=== PATIENT | female | born 1950 | race Caucasian/White ===

== ENCOUNTER 2023-06-04 12:38 | Inpatient (IN) ==
--- NOTE | 2023-06-04 14:18 | Emergency Department Note ---
Impression & Plan Facial cellulitis, Cellulitis of ear, Sepsis, Leukocytosis, Elevated lactic acid level ED Provider Note HISTORY OF PRESENT ILLNESS: Patient is a 73-year-old female presenting with redness and swelling to the right ear and face. Patient was seen in convenient care earlier today and referred to the emergency department "for scans of my face because they think I have a sinus infection." Patient states that 3.5 days ago, she noticed swelling to her right ear that has since gradually progressed to her right face and right maxillary region. Her right ear has gotten significantly swollen in the last few days. She denies any trauma to the area. Denies any bites. Denies any trauma to the ear. Denies this area being itchy. She states that she does have significant pain to the ear and right side of her face. Denies any changes in vision. Reports fevers up to 101. Denies any vomiting but does report nausea. Denies any chest pain or shortness of breath. Denies any changes in hearing. Denies any pain with range of motion of the neck. Denies any gait instability. ROS: as above PHYSICAL EXAM: Constitutional: Patient appears in no acute distress. HENT: Head: Normocephalic and atraumatic. Eyes: EOMI, PERRL Ears: TM intact without erythema or bulging. External canals without erythema or discharge. Right external ear is diffusely swollen and erythematous. Area is tender to palpation. Mouth/Throat: Mucous membranes moist. Neck: Trachea midline. Neck supple. Cardiovascular: RRR, No murmurs, rubs or gallops. Intact distal pulses. Pulmonary/Chest: No respiratory distress. Breath sounds clear and equal bilaterally. No wheezes or rales. Abdominal: Abdomen soft, no tenderness, rebound or guarding. Musculoskeletal: No edema, tenderness or deformity noted. Skin: Warm and dry. No rash, erythema, pallor or cyanosis Psychiatric: Appropriate mood and affect for situation. Neurological: Alert and keenly responsive. CN II-XII grossly intact, moving all extremities equally and fully. MDM: - Vitals signs stable. - History obtained via patient. Patient presents with Swelling of her right ear and face. Patient was at convenient care earlier today and referred to the ER. She states that 3.5 days ago she noted swelling to her right ear that is gradually progressed to her right face and right maxillary region. Right ear has gotten more swollen and erythematous in the last few days. Denies any itchiness to the area. Denies any trauma to the area. Reports fevers in the last few days up to 101 denies any pain with range of motion of the neck or changes in vision - Chronic conditions affecting care: HTN; HLD; DM-2 - Differential diagnoses include, but are not limited to: cellulitis; sepsis; nasal infection; soft tissue infection; deep space neck infection - Order placed for continuous cardiac monitoring. At this time, monitor showed rate of 97 bpm with normal sinus rhythm, per my interpretation. - External medical records reviewed. - Laboratory workup interpreted by myself showed leukocytosis (WBC 13.00) with left shift; stable electrolytes; normal procalcitonin; elevated lactate (2.1) - Considered imaging of patient's face, but her physical examination is cellulitis and she has no symptoms of a "sinus infection." - Patient meets sepsis criteria. Given 2L NS fluids in ER and IV linezolid after blood cultures obtained. Patient's sepsis fluid resuscitation volume per ideal body weight is 1704 mL. - Given patient's extensive ear and facial cellulitis, in setting of sepsis and history of DM-2, will admit to hospitalist service. - Discussion was had with health care attorney about patient's case and need for admission - Hospitalist consulted for admission - Patient admitted to [facility] hospitalist service for further evaluation and management. ASSESSMENT AND PLAN: Diagnosis: facial cellulitis; cellulitis of right ear; sepsis; elevated lactic acid; leukocytosis Plan: admit Past Med/Surg History Medical History Obesity Osteoarthritis Hyperlipidemia Hypertension Diabetes mellitus NIDDM Surgical History History of colonoscopy History of bilateral tubal ligation History of section x1 History of tonsillectomy Family History Other Family history non-contributory No family history of adverse response to anesthesia Social History Smoking Status: Never smoker Second Hand Exposure: No; Do You Dip or Chew Tobacco: No; Hx Alcohol Use: Yes Hx Substance Use: No Preferred Language: Khmer Communication Ability: Effective Food Service Associate Required: No Beliefs That Will Affect Care: None Current Living Situation: Spouse Feels Safe at Home: Yes Assistive Devices: Glasses Allergies Allergies Allergy/AdvReac Type Severity Reaction Status Date / Time No Known Allergies Allergy Verified 05/26/21 07:49 Home Meds Home Medications Medication Instructions Recorded Confirmed rxbckew-mcceyursfjitw-omlvimdk 250 2 tab PO Q6H PRN Headache 11/15/18 05/26/21 mg-250 mg-65 mg tablet (Excedrin Migraine) empagliflozin 25 mg tablet 25 mg PO QAM 11/15/18 05/26/21 (Jardiance) glipizide 5 mg tablet, extended 10 mg PO QAM 11/15/18 05/26/21 release 24 hr (Glucotrol XL) glucosamine sulfate 500 mg tablet 500 mg PO QAM 11/15/18 05/26/21 (Glucosamine) lisinopril 40 mg tablet 40 mg PO PM 11/15/18 05/26/21 metformin 1,000 mg tablet 1,000 mg PO BIDM 11/15/18 05/26/21 multivitamin 1 tab PO QAM 11/15/18 05/26/21 multivitamin,Ca,mineral-folic 400 mcg PO PM 11/15/18 05/26/21 acid-herbal no.157 400 mcg tablet (Estroven Maximum Strength) simvastatin 40 mg tablet 40 mg PO PM 11/15/18 05/26/21 semaglutide 7 mg tablet 7 mg PO QAM 05/16/21 05/26/21 Previous Rx's Medication Instructions Recorded acetaminophen 500 mg tablet 1,000 mg (2 x 500 mg) PO Q8 #60 05/26/21 (Tylenol Extra Strength) tabs aspirin 81 mg tablet,delayed 81 mg PO BID #60 tabs 05/26/21 release cefadroxil 500 mg capsule 500 mg PO BID #28 caps 05/26/21 celecoxib 200 mg capsule (Celebrex) 200 mg PO BID #60 caps 05/26/21 ondansetron HCl 4 mg tablet 4 mg PO Q8H PRN nausea and 05/26/21 vomiting #20 tabs oxycodone 5 mg tablet 5 - 10 mg (1 - 2 x 5 mg) PO 05/26/21 .Q4h-6h PRN pain #30 tabs Results & Data (ED) Vital Signs Vital Signs - 24 hr 06/04/23 13:11 06/04/23 14:45 06/04/23 14:49 Temperature 36.8 C 37.3 C Temperature Source Oral Oral Pulse Rate 90 97 H Pulse Rate [Right Finger] 93 H Respiratory Rate 16 26 H Respiratory Effort / Characteristics Non-Labored Spontaneous Respiratory Depth Normal Normal Blood Pressure 121/90 Blood Pressure [Right Arm] 119/66 Blood Pressure Mean 100 Blood Pressure Mean [Right Arm] 83 Pulse Oximetry 95 93 Oxygen Delivery Method Room Air Room Air Sepsis Recent Fever Within 48 Hours No Sepsis New/Unexplained Change in Mental Status No Sepsis Action Taken by Nursing No Action Required Laboratory Data 06/04/23 14:11 06/04/23 14:11 Lab Results 06/04/23 Range/Units 14:11 WBC 13.00 H (4.8-10.8) K/ul RBC 5.04 (4.20-5.40) M/uL Hgb 13.9 (12.0-16.0) g/dl Hct 42.0 (37.0-47.0) % MCV 83.3 (80.0-100.0) fL MCH 27.6 (25.0-34.0) pg MCHC 33.1 (32.0-36.0) g/dL RDW Std Deviation 45.8 (36.4-46.3) fL RDW Coeff of Farhad 15.0 H (11.5-14.5) % Plt Count 220 (130-400) K/uL MPV 9.6 (9.4-12.4) fL Immature Gran % (Auto) 0.4 % Neut % (Auto) 81.0 % Lymph % (Auto) 10.8 % [place] % (Auto) 7.2 % Eos % (Auto) 0.2 % Baso % (Auto) 0.4 % Neut # (Auto) 10.53 H (1.40-6.50) K/uL Lymph # (Auto) 1.41 (1.20-3.40) K/uL [place] # (Auto) 0.93 H (0.11-0.59) K/uL Eos # (Auto) 0.03 (0.00-0.50) K/uL Baso # (Auto) 0.05 (0.00-0.20) K/uL Immature Gran # (Auto) 0.05 (0.01-0.20) K/uL Sodium 133 L (136-145) mmol/L Potassium 4.4 (3.5-5.1) mmol/L Chloride 98 (98-107) mmol/L Carbon Dioxide 24 (21-32) mmol/L Anion Gap 11 (3-11) BUN 15 (6-23) mg/dl Creatinine 1.00 (0.6-1.2) mg/dl Est Cr Clr Drug Dosing 56.8 ml/min Est GFR ( Amer) 65.2 ml/min Est GFR (Non-Af Amer) 56.2 ml/min BUN/Creatinine Ratio 15.0 (10-20) Glucose 169 H (70-99(Fasting)) mg/dl Lactate 2.1 H* (0.4-2.0) mmol/L Calcium 9.0 (8.6-10.3) mg/dl Total Bilirubin 0.9 (0.2-1.0) mg/dl AST 14 (13-39) U/L ALT 13 (7-52) U/L Alkaline Phosphatase 57 (34-104) U/L Total Protein 7.3 (6.0-8.3) gm/dl Albumin 4.2 (3.4-5.0) gm/dl Globulin 3.1 (2.5-4.0) gm/dl Albumin/Globulin Ratio 1.4 (0.9-2) Procalcitonin 0.13 (0-0.5) ng/ml Administered Medications Linezolid (Zyvox) 600 mg in 300 mls @ 300 mls/hr IV Q12H SHEKHAR Stop: 06/11/23 14:14 Last Admin: 06/04/23 14:41 Dose: 300 mls/hr Documented By: MICHAEL Imaging Data Radiologist's Impression: Chest X-Ray 06/04/23 15:16 XR chest 1V portable CLINICAL HISTORY: sepsis TECHNIQUE: Single frontal radiograph of the chest was obtained. Comparison: Comparison is made to chest radiograph 02/24/2021 FINDINGS: No lines and tubes are seen. The cardiomediastinal silhouette is normal. The lungs are clear. No evidence of pleural effusion or pneumothorax. IMPRESSION: No acute abnormalities and in particular no radiographic evidence of pneumonia. ACT 112: Negative or not required by law. Electronically signed by: Kraig Carlisle M.D. 06/04/2023 3:38 PM Discharge Plan Visit Data Chief Complaint: Referred by Doctor Stated Complaint: REF BY DOC ED Provider: Rukhsana Shafer Discharge Problem: Facial cellulitis, Cellulitis of ear, Sepsis, Leukocytosis, Elevated lactic acid level Forms Stand Alone Forms: My [facility] [employer] Prescriptions Prescriptions: No Action multivitamin Tablet 1 tab PO QAM glipizide [Glucotrol XL] 5 mg tablet extended release 24hr 10 mg PO QAM glucosamine sulfate [Glucosamine] 500 mg Tablet 500 mg PO QAM simvastatin 40 mg tablet 40 mg PO PM metformin 1,000 mg tablet 1,000 mg PO BIDM lisinopril 40 mg tablet 40 mg PO PM Excedrin Migraine 250-250-65 mg Tablet 2 tab PO Q6H PRN (Reason: Headache) Estroven Maximum Strength 400 mcg Tablet 400 mcg PO PM Jardiance 25 mg tablet 25 mg PO QAM semaglutide 7 mg Tablet 7 mg PO QAM celecoxib [Celebrex] 200 mg Capsule 200 mg PO BID Qty: 60 0RF aspirin 81 mg Tablet,Delayed Release (Dr/Ec) 81 mg PO BID Qty: 60 0RF oxycodone 5 mg Tablet 5 - 10 mg PO .Q4h-6h MDD 6 PRN (Reason: pain) Qty: 30 0RF Rx Instructions: Ongoing therapy, Dr. Rivas supervising acetaminophen [Tylenol Extra Strength] 500 mg Tablet 1,000 mg PO Q8 Qty: 60 0RF cefadroxil 500 mg capsule 500 mg PO BID Qty: 28 0RF ondansetron HCl 4 mg tablet 4 mg PO Q8H PRN (Reason: nausea and vomiting) Qty: 20 0RF Referrals Referrals: Clarita Tirado PA-C [Primary Care Provider] -
[2023-06-04 14:31] LABS: Basophils # (auto) 0.05 K/uL (0.00-0.20); Basophils % (auto) 0.4 %; Eosinophils # (auto) 0.03 K/uL (0.00-0.50); Eosinophils % (auto) 0.2 %; Hemoglobin 13.9 g/dl (12.0-16.0); Immature Granulocytes # (auto) 0.05 K/uL (0.01-0.20); Immature Granulocytes % (auto) 0.4 %; Lymphocytes # (auto) 1.41 K/uL (1.20-3.40); Lymphocytes % (auto) 10.8 %; Mean Corpuscular Hemoglobin 27.6 pg (25.0-34.0); Mean Corpuscular Hgb Conc 33.1 g/dL (32.0-36.0); Mean Corpuscular Volume 83.3 fL (80.0-100.0); Mean Platelet Volume 9.6 fL (9.4-12.4); Monocytes # (auto) 0.93 K/uL (0.11-0.59); Monocytes % (auto) 7.2 %; Neutrophils # (auto) 10.53 K/uL (1.40-6.50); Platelet Count 220 K/uL (130-400); RDW Standard Deviation 45.8 fL (36.4-46.3); Red Blood Count 5.04 M/uL (4.20-5.40)
[2023-06-04] MEDS: LINEZOLID 600 MG/300 ML BAG IV SCH (14:41)
[2023-06-04 14:52] LABS: Albumin Globulin Ratio 1.4 (0.9-2); Albumin Level 4.2 gm/dl (3.4-5.0); Bilirubin,Total 0.9 mg/dl (0.2-1.0); Creatinine Clr Calc Pharmacy 56.8 ml/min; Est GFR (African American) 65.2 ml/min; Est GFR (Non-African American) 56.2 ml/min; Globulin 3.1 gm/dl (2.5-4.0); Potassium 4.4 mmol/L (3.5-5.1); Total Protein 7.3 gm/dl (6.0-8.3)
--- NOTE | 2023-06-04 15:39 | XRay Report ---
XR chest 1V portable CLINICAL HISTORY: sepsis TECHNIQUE: Single frontal radiograph of the chest was obtained. Comparison: Comparison is made to chest radiograph 02/24/2021 FINDINGS: No lines and tubes are seen. The cardiomediastinal silhouette is normal. The lungs are clear. No evid ence of pleural effusion or pneumothorax. IMPRESSION: No acute abnormalities and in particular no radiographic evidence of pneumonia. ACT 112: Negative or not required by law. Electronically signed by: Kraig Carlisle M.D. 06/04/2023 3:38 PM
[2023-06-04] MEDS ORDERED: ALUMINUM/MAGNESIUM SUSP 30 ML UDC PO PRN (15:59)
[2023-06-04] MEDS ORDERED: MAGNESIUM HYDROXIDE SUSP 30 ML UDC PO PRN (15:59)
[2023-06-04] MEDS ORDERED: POLYETHYLENE (MIRALAX) 17 GM PACK PO PRN (15:59)
[2023-06-04] MEDS ORDERED: ONDANSETRON INJ 2 MG/ML 2 ML VIAL IV PRN (15:59)
[2023-06-04] MEDS ORDERED: ACETAMINOPHEN 325 MG TAB PO PRN (15:59)
--- NOTE | 2023-06-04 16:09 | History & Physical Report ---
Date of Service June 04, 2023 Assessment & Plan (1) Sepsis: (2) Facial cellulitis: (3) Elevated lactic acid level: (4) Hyperlipidemia: (5) Hypertension: (6) Diabetes mellitus: Plan Ms. Salazar is a 73 y/o F that presented to the ED today after being recommended to come to the ED from [facility]. On Sunday she noticed she had a fever (101) and a headache with swelling that started at her right ear extending downward on her face. She received IM Rocephin at [facility] today and was advised to proceed to the ER. In the ED, was noted to have leukocytosis WBC 13.00, elevated lactate 2.1, procalcitonin negative, and otherwise electrolytes unremarkable. Additional PMH includes HTN, NIDDM2, and HLD. Upon arrival to the ED, pt meets sepsis criteria with leukocytosis (13.00), elevate lactate (2.1), and fevers (101). Denies tobacco, alcohol, or recreational drug use. Reports that she has been doing a lot of cleaning in the kitchen on her hands and knees. They do report having a cat and mice in their house. Exposed mold noted upon removing wallpaper earlier this week. Maxillary facial CT negative for abscess or fracture. Lyme's screening negative. On examination, (+) erythema and swelling of entire R ear extending downward toward mandible. No oral lesions. No lymphadenopathy. Suspect possible spider bite. Will admit for sepsis secondary to facial cellulitis. Continue IV abx and adjust based on culture results, trend lactate, maxillary and facial CT obtained, continue broad spectrum abx, obtain MRSA screen, provide pain control, check CRP and place on SSI. #Sepsis secondary to facial cellulitis: Leukocytosis 13.00, tachypnea, fevers 101, elevated lactate 2.1 meeting sepsis criteria Received IM Rocephin as outpatient Lactate 2.1--> 1.8 IV Linezolid in ED; will continue with Unasyn and adjust based on culture/MRSA results Blood cultures pending Received 2LNSB in ED; lactate has trended downward. gentle fluids added x2 bags Maxillary/facial CT negative for abscess and fracture Lyme's serology negative Check MRSA swab If no improvement, consider IV steroid #HTN: Chronic Takes Lisinopril; continue HLD: Chronic Takes Simvastatin;continue NIDDM2: Chronic Takes Metformin and semalutide; hold for now and place on SSI ACHS Disposition: PCP: Clarita Tirado PA-C Code Status: Full Code VTE Prophylaxis: Lovenox SQ I spent a total of 87 minutes coordinating, documenting, and providing care for this patient excluding time spent in the performance of separately billed services. All of the aforementioned completed while collaborating with the assigned attending physician for a full treatment plan. Please see their addendum for further details. History of Present Illness Chief Complaint: facial cellulitus Primary Care Provider: Clarita Tirado PA-C Ms. Salazar is a 73 year old female that presented to the ED today after being recommended to come to the ED from [facility]. On Sunday she noticed she had a fever (101) and a headache with swelling that started at her right ear extending downward on her face. She received IM Rocephin at [facility] and was advised to proceed to the ER. In the ED, was noted to have leukocytosis WBC 13.00, elevated lactate 2.1, procalcitonin negative, and otherwise electrolytes unremarkable. Additional PMH includes HTN, NIDDM2, and HLD. Upon arrival to the ED, pt meets sepsis criteria with leukocytosis (13.00), elevate lactate (2.1), and fevers (101). Denies tobacco, alcohol, or recreational drug use. Reports that she has been doing a lot of cleaning in the kitchen on her hands and knees. They do report having a cat and mice in their house. Exposed mold noted upon removing wallpaper earlier this week. Maxillary facial CT negative for abscess or fracture. Lyme's screening negative. On examination, (+) erythema and swelling of entire R ear extending downward toward mandible. No oral lesions. No lymphadenopathy. Suspect possible spider bite. Will admit for sepsis secondary to facial cellulitis. Continue IV abx and adjust based on culture results, trend lactate, maxillary and facial CT obtained, continue broad spectrum abx, obtain MRSA screen, provide pain control, check CRP and place on SSI. Please see A/P for further details. Allergies Allergy/AdvReac Type Severity Reaction Status Date / Time No Known Allergies Allergy Verified 05/26/21 07:49 Home Medications Medication Instructions Recorded Confirmed Type tuoenmi-gxopzoauqaibl-wsinbhac 250 2 tab PO Q6H PRN Headache 11/15/18 06/04/23 History mg-250 mg-65 mg tablet (Excedrin Migraine) empagliflozin 25 mg tablet 25 mg PO QAM 11/15/18 06/04/23 History (Jardiance) glucosamine sulfate 500 mg tablet 500 mg PO QAM 11/15/18 06/04/23 History (Glucosamine) lisinopril 40 mg tablet 40 mg PO PM 11/15/18 06/04/23 History metformin 1,000 mg tablet 1,000 mg PO BIDM 11/15/18 06/04/23 History multivitamin 1 tab PO QAM 11/15/18 06/04/23 History multivitamin,Ca,mineral-folic 400 mcg PO PM 11/15/18 06/04/23 History acid-herbal no.157 400 mcg tablet (Estroven Maximum Strength) simvastatin 40 mg tablet 40 mg PO PM 11/15/18 06/04/23 History semaglutide 7 mg tablet 7 mg PO QAM 05/16/21 06/04/23 History acetaminophen 500 mg tablet 1,000 mg (2 x 500 mg) PO Q8 #60 05/26/21 06/04/23 Rx (Tylenol Extra Strength) tabs aspirin 81 mg tablet,delayed 81 mg PO BID #60 tabs 05/26/21 06/04/23 Rx release celecoxib 200 mg capsule (Celebrex) 200 mg PO BID #60 caps 05/26/21 06/04/23 Rx ondansetron HCl 4 mg tablet 4 mg PO Q8H PRN nausea and 05/26/21 06/04/23 Rx vomiting #20 tabs oxycodone 5 mg tablet 5 - 10 mg (1 - 2 x 5 mg) PO 05/26/21 06/04/23 Rx .Q4h-6h PRN pain #30 tabs Past Med/Surg History Medical History Obesity Osteoarthritis Hyperlipidemia Hypertension Diabetes mellitus NIDDM Surgical History History of colonoscopy History of bilateral tubal ligation History of section x1 History of tonsillectomy Family History Other Family history non-contributory No family history of adverse response to anesthesia Social History Smoking Status: Never smoker Second Hand Exposure: No; Do You Dip or Chew Tobacco: No; Hx Alcohol Use: No Hx Substance Use: No Preferred Language: Botswanan Communication Ability: Effective Branch Coordinator Required: No Beliefs That Will Affect Care: None Current Living Situation: Spouse Feels Safe at Home: Yes Assistive Devices: Glasses Review of Systems Review of Systems: Neuro: (-) Falls, trauma, slurred speech (+) fevers HEENT: (-) VAZ, dizziness, dysphagia, visual or auditory changes CV: (-) CP, palpitations, swelling Resp: (-) SOB GI: (-) appetite changes, N/V/D, bowel changes : (-) urinary changes Skin: (+) rashes Psych: (-) anxiety, depression Physical Exam Physical Exam: Neuro: AAOx4, PERRLA, no aphagia, memory changes, CNII-XII grossly intact (+) fever HEENT: head normocephalic, moist mucus membranes CV: S1/S2, (-) M/G/R, (-) edema, cap refill < 3 seconds Resp: Lungs CTA in all velázquez. On RA GI: Abdomen S/NT/ND, Ax4 bowel sounds, (-) CVA tenderness Musculoskeletal: 5/5 B/L UE strength, 5/5 B/L LE strength. No gait disturbance Skin: (-) rashes , (-) erythema. (+) erythema and swelling of entire R ear extending downward toward mandible. No oral lesions. No lymphadenopathy. Psych: euthymic mood Results & Data Results & Data Vital Signs (Past 12 Hours) Vital Signs Temp Pulse Pulse Resp BP BP Pulse Ox 06/04/23 14:49 97 H 06/04/23 14:45 37.3 C 93 H 26 H 119/66 93 06/04/23 13:11 36.8 C 90 16 121/90 95 O2 Del Method 06/04/23 14:49 06/04/23 14:45 Room Air 06/04/23 13:11 Room Air Laboratory Results Short CBC 06/04/23 Range/Units 14:11 WBC 13.00 H (4.8-10.8) K/ul Hgb 13.9 (12.0-16.0) g/dl Hct 42.0 (37.0-47.0) % Plt Count 220 (130-400) K/uL BMP 06/04/23 14:11 Sodium 133 L Potassium 4.4 Chloride 98 Carbon Dioxide 24 BUN 15 Creatinine 1.00 Glucose 169 H Calcium 9.0 Liver Function 06/04/23 Range/Units 14:11 Total Bilirubin 0.9 (0.2-1.0) mg/dl AST 14 (13-39) U/L ALT 13 (7-52) U/L Alkaline Phosphatase 57 (34-104) U/L Albumin 4.2 (3.4-5.0) gm/dl Diagnostic Findings Chest X-Ray 06/04/23 15:16 XR chest 1V portable CLINICAL HISTORY: sepsis TECHNIQUE: Single frontal radiograph of the chest was obtained. Comparison: Comparison is made to chest radiograph 02/24/2021 FINDINGS: No lines and tubes are seen. The cardiomediastinal silhouette is normal. The lungs are clear. No evidence of pleural effusion or pneumothorax. IMPRESSION: No acute abnormalities and in particular no radiographic evidence of pneumonia. ACT 112: Negative or not required by law. Electronically signed by: Kraig Carlisle M.D. 06/04/2023 3:38 PM Code Status & VTE Plan Code Status Full Code in the event of cardiac or respiratory arrest VTE Prophylaxis Plan VTE Prophylaxis will be ordered: Yes Supervising Physician Co-Signing Physician Notes Attending addendum: The patient was seen and examined in the emergency room She has been complaining of right facial swelling with pain for the last 2 to 3 days Thinks that she has had a spider bite Has had fever no nausea no vomiting No problem with hearing no ringing in the ears did have headache but no blurred vision no other neurological symptoms No skin break noted no drainage On examination Lying in bed with some anxiety Hemodynamically stable and afebrile Swelling of the right face earlobes and adjoining area of the scalp with tenderness and warmth Right cervical gland cellulitis to-oral cavity remained unremarkable Chest-clear to auscultate bilateral Heart S1-S2 regular- Abdomen-benign Extremities-negative for any edema Her admission labs. And imaging studies reviewed CT of the face did not show any fluid collection//acute fracture or other abnormality Started on Unasyn and also received a dose of steroid Agree with assessment plan as outlined above by Ilsa Mccord
[2023-06-04] MEDS: SODIUM CHLORIDE 0.9% 1,000 ML IV ONE ×2 (16:14)
[2023-06-04] MEDS ORDERED: CARBOHYDRATES FOR HYPOGLYCEMIA PO PRN (16:34)
[2023-06-04] MEDS ORDERED: DEXTROSE 50% 50 ML SYRINGE IV PRN (16:34)
[2023-06-04] MEDS ORDERED: GLUCOSE 10 TAB/TUBE PO PRN (16:34)
[2023-06-04] MEDS ORDERED: GLUCAGON FOR INJ 1 MG VIAL SQ PRN (16:34)
[2023-06-04] MEDS ORDERED: GLUCOSE 40% GEL 15 GM TUBE PO PRN (16:34)
[2023-06-04] MEDS ORDERED: PHARMACY GLYCEMIC MGMT CONSULT PRN (16:34)
[2023-06-04] MEDS: OPTIRAY 320 500ml IV ONE (16:41)
--- NOTE | 2023-06-04 16:57 | CT Scan Report ---
CT facial bones w con CLINICAL HISTORY: facial cellulitis TECHNIQUE: Multidetector row helical CT of the maxillofacial bones was performed with administration of intravenous contrast, and processed with bone and soft tissue algorithms. Coronal and sagittal ref ormations were obtained. Automated dose lowering techniques and/or adjustment according to patient si ze were utilized for this exam. Comparison: None available at the time of this dictation. FINDINGS: Nasal bones are normal. The mandible is intact. The temporomandibular joints are anatomically aligned . Pterygoid plates are intact. Zygomatic arches are intact. The globes are normal and symmetric, without proptosis, obvious disruption or lens dislocation. Ther e is no orbital radiopaque foreign body. The orbital hearn are intact. The retrobulbar fat is without evidence of disruption. Extraocular muscles are normal and symmetric. Optic nerve sheath complexes are normal in course and caliber. Imaged portions of the paranasal sinuses and mastoid air cells are clear. IMPRESSION: No drainable fluid collection, acute fracture, or other acute abnormality. ACT 112: Negative or not required by law. Electronically signed by: Kraig Carlisle M.D. 06/04/2023 4:56 PM
[2023-06-04 18:15] LABS: Appearance Urine Clear (Clear); Bilirubin Urine Negative (Negative); Blood Urine Negative (Negative); Color Urine Yellow; Glucose Urine UA 3+ (Negative); Ketones Urine 1+ (Negative); Leukocyte Esterase Urine Negative (Negative); Nitrite Urine Negative (Negative); Protein Urine Negative (Negative); Specific Gravity Urine 1.041 (1.000-1.030); Urobilinogen Urine Negative (Negative)
[2023-06-04] MEDS: ENOXAPARIN INJ 40 MG/0.4 ML SYR SQ SCH (20:11)
[2023-06-04] MEDS: SODIUM CHLORIDE 0.9% 1,000 ML IV SCH (20:50)
[2023-06-04] MEDS ORDERED: LANTUS PER UNIT CHARGE SQ SCH (21:00)
[2023-06-04] MEDS ORDERED: AMPICILLIN/SULBACTAM SOD 3,000 MG in SODIUM CHLOR 0.9% MINI-B 100 ML IV SCH (21:00)
[2023-06-04] MEDS: ASPIRIN 81 MG ECTAB PO SCH (21:03)
[2023-06-04] MEDS: lisinopril 40 MG TAB PO SCH (21:03)
[2023-06-04] MEDS: SIMVASTATIN 40 MG TAB PO SCH (21:03)
[2023-06-04] MEDS: LANTUS PER UNIT CHARGE SQ SCH (21:04)
[2023-06-04] MEDS: UNASYN 3000MG / NS q6h IV SCH (21:04)
[2023-06-04] MEDS: INSULIN ASPART PER UNIT CHARGE SC SCH (21:04)
--- OUTSIDE RECORDS SUMMARY | 2023-06-05 07:50 | External Medical Summary | Summary of Care ---
Author Name Unknown Organization [facility] Address [address] [place] [address] Phone [phone] Care Team Providers Care Marketing Planning Manager Name Role Phone Bruno VASQUEZ MD, Roberto Carlos Stokes Primary Care Provider [phone] Reason for Referral * Precert (Within 24 hrs (call dept; emergent)) - Pending Review Specialty Diagnoses / Procedures Referred By Contac t Referred To Contact Radiology Diagnoses Acute diffuse otitis externa of right ear Acute sinusitis, recurrence not specified, unspecified location Facial pain Facial swelling Procedures CT SINUSES W WO CONTRAST Rasheed Hampton PA-C [address] [place] [address] Referral ID Status Reason Start Date Expiration Date V isits Requested Visits Authorized [id number] Pending Review 06/04/2023 999 999 * Precert (Within 24 hrs (call dept; emergent)) - Pending Review Specialty Diagnoses / Procedures Referred By Contac t Referred To Contact Radiology Diagnoses Acute diffuse otitis externa of right ear Acute sinusitis, recurrence not specified, unspecified location Facial pain Facial swelling Procedures CT NECK W CONTRAST Rasheed Hampton PA-C [address] [place] [address] Referral ID Status Reason Start Date Expiration Date V isits Requested Visits Authorized [id number] Pending Review 06/04/2023 999 999 * Evaluate & Treat - Unlimited Visits (Within 24 hrs (call dept; emergent)) - Pending Review Specialty Diagnoses / Procedures Referred By Juliocesar fischer Referred To Contact Otolaryngology Diagnoses Acute diffuse otitis externa of right ear Acute sinusitis, recurrence not specified, unspecified location Facial pain Facial swelling Rasheed Hampton PA-C [address] [address] Referral ID Status Reason Start Date Expiration Date Visits Requested Visits Authorized [id number] Pending Review Specialty Services Required 06/04/2023 999 999 Question Answer Referral Priority Within 24 hrs (call dept; emergent) Where should this appointment be scheduled? [facility] Reason for Referral Sinus/Nasal/Allergy Conditions Specific Condition: Acute Sinusitis Reason for Visit * Reason Comments Other Right sided facial p ain and swelling with noted redness x 3 days increasing worsening noted Nausea Encounter Details Date Type Department Care Team (Latest Contact Info) Description 06/04/2023 10:50 AM EST Convenient Care Visit [facility] [address] [place] [address] Rasheed Hampton PA-C [address] [place] [address] Acute diffuse otitis externa of right ear*; Acute sinusitis, recurrence not specified, unspecified location; Facial pain; Facial swelling Allergies No known active allergiesdocumented as of this encounter (statuses as of 06/04/2023) Medications Medication Sig Dispensed Refills Start Date End Date Status Multiple Vitamins-Minerals (ONE-A-DAY MENOPAUSE FORMULA) TABS Take 1 Tab by mouth daily. 0 Active Misc Natural Products (GLUCOSAMINE CHONDROITIN TRIPLE) TABS Take 1 Tab by mouth daily. 0 Active Specialty Vitamins Products (RA EAR CARE) TABS Take 1 Tab by mouth 2 times a day. 0 Active Aspirin 81 MG TabletIndications: Type 2 diabetes mellitus with hemoglobin A1c goal of less than 8.0% (HCC) Take 1 Tab by mouth daily. 30 Tab 0 11/06/2017 Active TRUEplus Lancets 30G USE UP TO 4 TIMES A DAY 400 Each 3 01/17/2022 Active Ikro 2 w/Device KitIndications:Typ e 2 diabetes mellitus with hemoglobin A1c goal of less than 8.0% (HCC) Use to test blood glucose. DX: E11.9 1 Each 0 03/06/2022 Active Ibuprofen 600 MG Oral Tablet (Motrin) take 1 tablet by mouth three times a day if needed WITH FOOD 0 03/01/2022 Active [employer] Delica Plus [id number] ns:Type 2 diabetes mellitus with hemoglobin A1c goal of less than 8.0% (HCC) Use as directed. Test blood glucose 4 times daily. 400 Each 3 05/15/2022 Active [employer] Ultra In Vitro Strip (Glucose Blood)Indications: Type 2 diabetes mellitus with hemoglobin A1c goal of less than 8.0% (HCC) TEST 4 TIMES DAILY 400 Strip 1 02/26/2023 Active Atorvastatin Calcium 20 MG Oral Tablet (Lipitor) Take 1 Tablet by mouth in the morning. In the morning.. 90 Tablet 1 04/02/2023 Active amLODIPine Besylate 5 MG Oral Tablet (Norvasc) Take 1 Tablet by mouth in the morning. In the morning.. 90 Tablet 1 04/02/2023 Active Semaglutide 14 MG Oral Tablet (Rybelsus)Indicati ons:Type 2 diabetes mellitus with hemoglobin A1c goal of less than 8.0% (HCC) Take 14 mg by mouth daily first thing in the morning. 90 Tablet 3 04/02/2023 Active Lisinopril 40 MG Oral Tablet Take 1 Tablet by mouth in the morning. 90 Tablet 1 04/02/2023 Active Empagliflozin 25 MG Oral Tablet (Jardiance)Indicat ions:Type 2 diabetes mellitus with hemoglobin A1c goal of less than 8.0% (HCC) Take 1 Tablet by mouth in the morning. In the morning.. 90 Tablet 3 04/24/2023 Active metFORMIN HCl 1000 MG Oral Tablet (Glucophage)Indica tions:Type 2 diabetes mellitus with hemoglobin A1c goal of less than 7.0% (HCC) Take 1 Tablet by mouth in the morning and 1 Tablet before bedtime. With food.. 180 Tablet 1 04/24/2023 Active Metoprolol Succinate ER 25 MG Oral Tablet Extended Release 24 Hour (toPROL XL)Indications:Ess ential hypertension with goal blood pressure less than 140/90 Take 1 Tablet by mouth in the morning. In the morning.. 90 Tablet 2 04/24/2023 Active Vitamin B-12 1000 MCG Oral Tablet (Cyanocobalamin) Take 1 Tablet by mouth in the morning. In the morning.. 100 Tablet 3 04/24/2023 Active Doxycycline Hyclate 100 MG Oral CapsuleIndications :Acute diffuse otitis externa of right ear,Acute sinusitis, recurrence not specified, unspecified location,Facial pain,Facial swelling Take 1 Capsule by mouth in the morning and 1 Capsule before bedtime. Do all this for 10 days. 20 Capsule 0 06/04/2023 4 Active Doxycycline Hyclate 100 MG Oral CapsuleIndications :Acute diffuse otitis externa of right ear,Acute sinusitis, recurrence not specified, unspecified location,Facial pain,Facial swelling Take 1 Capsule by mouth in the morning and 1 Capsule before bedtime. Do all this for 7 days. Take for 7 days. 14 Capsule 0 06/04/2023 4 Discontinued Hospital, Clinic, or Other Facility Administered Medication Ordered Dose Route Frequency Start Date End Date Status cefTRIAXone (Rocephin) inj 1 gIndications:Acute diffuse otitis externa of right ear,Acute sinusitis, recurrence not specified, unspecified location,Facial pain,Facial swelling 1 g IM ONCE 06/04/2023 06/04/2023 En[address] d documented as of this encounter (statuses as of 06/04/2023) Active Problems Problem Noted Date Diagnosed Date Chronic kidney disease, stage 3a 09/28/2020 Overview: Per CKD protocol Type 2 diabetes mellitus wit h stage 3a chronic kidney disease 08/24/2020 Overview: Per CKD protocol Essential hypertension with goal blood pressure less than 140/90 02/19/2017 Type 2 diabetes mellitus wit h hemoglobin A1c goal of less than 8.0% 11/17/2014 Overview: ICD-10 update of inactive term Hypercholesteremia documented as of this encounter (statuses as of 06/04/2023) Resolved Problems Problem Noted Date Diagnosed Date Resolved Date Stage 3 chronic kidney disease 08/09/2021 08/25/2021 Diabetes mellitus with stage 3 chronic kidney disease 05/27/2019 08/26/2020 Overview: Per CKD protocol Dyslipidemia, goal LDL below 100 04/01/2009 04/07/2013 Overview: Per Lipid Taxonomy. Type 2 diabetes mellitus wit h hemoglobin A1c goal of less than 7.0% 01/28/2009 11/17/2014 Overview: Modified per Diabetes protocol #14. ICD-10 update of inactive term Primary localized osteoarthrosis, lower leg 05/21/2008 11/06/2017 Dyslipidemia, goal to be determined 05/21/2008 04/01/2009 Overview: Per Lipid Taxonomy. DM type 2, not at goal 08/07/200701/28 Overview: Modified per Diabetes protocol #14. DM type 2, goal A1C to be determined 02/19/2017 Dyslipidemia, goal to be determined 04/07/2013 documented as of this encounter (statuses as of 06/04/2023) Immunizations Name Administration Dates Next Due COVID-19 mRNA, LNP-s, No Pre serve, 2-Dose Series (Moderna) 06/17/2020,2020 COVID-19, MRNA-LNP, 23-24, P F, 50 MCG/0.5 mL, 12 YRS AND ABOVE, IM (MODERNA-Spikevax) 04/18/2023 COVID-19, mRNA, LNP-s, PF, B ooster, 100mcg/0.5mg (Moderna) 08/09/2021,02/26/2021 Covid-19, Mrna, Lnp-s, Pf, B ivalent, 30 Mcg, IM, 12 yrs and above (Pfizer) 03/06/2022 H1N1 2009 Influenza, IM 04/28/2009 Pneumococcal Conjugate Vacc, 13 Valent (Prevnar) 08/16/2016 Pneumococcal Polysaccharide PPV23 (Pneumovax) 11/06/2017,07/19/2005 Season Influenza, Quad, PF, Adjuvanted, 65+ Yrs, IM (FLUAD) 12/30/2019 Seasonal Influenza, PF, 6 M & above, IM , (FluLaval or Fluzone) 01/25/2018,01/25/2017 Seasonal Influenza, Quadriva lent Hd (Fluzone Hd) 01/31/2023,02/09/2022,02/08/2021 Seasonal Influenza, Split, I IV3, With Preserve, Inj 12/24/2015,12/18/2014,01/02/2014,01/09,01/04/2012,12/29/2010,12/30/2009 ,12/23/2008,02/15/2008,03/16/2005 Seasonal Influenza, Trivalen t, Adjuvanted, 65+ yrs 01/21/2019 TDAP (age 10 and older)(Boostrix) 08/29/2022 TDAP (age 11 and older)(Adacel) 12/30/2009 Varicella Zoster Vaccine (Adult) 02/16/2014 Zoster Vaccine Recombinant (Shingrix) 07/19/2020 ,04/23/2020 documented as of this encounter Social History Tobacco Use Types Packs/Day Years Used Date Smoking Tobacco: Never Smokeless Tobacco: Never Tobacco Cessation:Counseling Given: Not Answered Alcohol Use Standard Drinks/Week Comments Yes 0 (1 standard drink = 0.6 oz pur e alcohol) rare PHQ-2 Answer Date Recorded PHQ Adult Total Score 0 03/01/2022 Hunger Vital Sign Answer Date Recorded Within the past 12 months, y ou worried that your food would run out before you got the money to buy more. Never true 03/01/20 22 Within the past 12 months, t he food you bought just didn't last and you didn't have money to get more. Never true 03/01/2022 Sex and Gender Information Value Date Recorded Sex Assigned at Not on file Gender Identity Not on file Sexual Orientation Not on file Job Start Date Occupation Industry Not on file Not on file Not on file documented as of this encounter Last Filed Vital Signs Vital Sign Reading Time Taken Comments Blood Pressure 124/56 06/04/2023 11:21 AM EST Pulse 51 06/04/2023 11:21 AM EST Temperature 38.8 C (101.8 F) 06/04/2023 11:21 AM EST Respiratory Rate 18 06/04/2023 11:21 AM EST Oxygen Saturation 95% 06/04/2023 11:21 AM EST Inhaled Oxygen Concentration - - Weight 90.7 kg (200 lb) 06/04/2023 11:21 AM EST Height 162.6 cm (5' 4") 06/04/2023 11:21 AM EST Body Mass Index 34.33 06/04/2023 11:21 AM EST documented in this encounter Patient Instructions * Patient Instructions* Rasheed Hampton PA-C - 06/04/2023 11:54 AM EST [facility] today for CT scan and blood work. Please call [phone] to schedule your study If you cannot get through on this line, you may call . Start doxycycline twice a day for 10 days Makes you sensitive to the sun. No Dairy, tums, rolaids, or multivitamin 2-3 hours before or after dose. Tylenol as needed for pain. Follow-up with ENT tomorrow. Go to ER if acutely worsens documented in this encounter Progress Notes * Rasheed Hampton PA-C - 06/04/2023 11:42 AM EST Images from the original note were not included. Subjective Sheryl Salazar is a 73 year old female with a PMH of DM2, CKD3, HTN that presents for Other (Right sided facial pain and swelling with noted redness x 3 days increasing worsening noted) and Nausea She reports that 3 days ago she started to have intense facial pain, swelling, redness on R maxillathat quickly spread to forehead and R ear and down to corner of jaw. Over the next 12 hours she developed a fever as well. She has since become nauseated and the pain and swelling continue to spread. She suspected that she was bitten by a spider, but she denies finding any bite. She denies sinus symptoms leading up to her symptoms. She reports malaise, and fatigue. Objective BP 124/56 | Pulse 51 | Temp (!) 38.8 C (101.8 F) (Tympanic) | Resp 18 | Ht 1.626 m (5' 4") | Wt90.7 kg (200 lb) | LMP 05/17/2006 | SpO2 95% | BMI 34.33 kg/m | BSA 2.02 m Body mass index is 34.33 kg/m. BP Readings from Last 3 Encounters: 06/04/23 124/56 03/01/23 130/70 08/29/22 126/70 Wt Readings from Last 3 Encounters: 06/04/23 90.7 kg (200 lb) 03/01/23 90.3 kg (199 lb) 08/29/22 94.4 kg (208 lb 1.3 oz) Physical Exam Vitals and nursing note reviewed. Constitutional: General: She is not in acute distress. Appearance: She is well-developed. She is not ill-appearing, toxic-appearing or diaphoretic. HENT: Head: Normocephalic and atraumatic. Right Ear: Tympanic membrane normal. Left Ear: Tympanic membrane, ear canal and external ear normal. Ears: Comments: R canal edematous, erythematous, without otorrhea. R external ear markedly edematous, erythematous, painful Mild R mastoid tenderness. R tenderness to corner of mandible with lymphadenopathy Nose: Nose normal. Mouth/Throat: Mouth: Mucous membranes are moist. Pharynx: Oropharynx is clear. Eyes: Extraocular Movements: Extraocular movements intact. Pupils: Pupils are equal, round, and reactive to light. Neck: Vascular: No JVD. Trachea: No tracheal deviation. Cardiovascular: Rate and Rhythm: Normal rate and regular rhythm. Pulses: Radial pulses are 2+ on the right side and 2+ on the left side. Heart sounds: Normal heart sounds. No murmur heard. No friction rub. No gallop. Pulmonary: Effort: No accessory muscle usage. Breath sounds: No decreased breath sounds, wheezing, rhonchi or rales. Chest: Chest wall: No mass, deformity, tenderness or crepitus. Abdominal: General: Bowel sounds are normal. Palpations: Abdomen is soft. There is no hepatomegaly or splenomegaly. Tenderness: There is no abdominal tenderness. There is no guarding or rebound. Musculoskeletal: General: Normal range of motion. Cervical back: Normal range of motion and neck supple. Right lower leg: No tenderness. No edema. Left lower leg: No tenderness. No edema. Skin: General: Skin is warm and dry. Capillary Refill: Capillary refill takes less than 2 seconds. Nails: There is no clubbing. Neurological: General: No focal deficit present. Mental Status: She is alert and oriented to person, place, and time. Psychiatric: Mood and Affect: Mood normal. Mood is not anxious. Behavior: Behavior normal. Behavior is not agitated. Thought Content: Thought content normal. Judgment: Judgment normal. Assessment and plan 1. Acute diffuse otitis externa of right ear - cefTRIAXone (Rocephin) inj 1 g - OTOLARYNGOLOGY REFERRAL OP - CBC WITH WBC DIFFERENTIAL; Future - COMPREHENSIVE METABOLIC PANEL; Future - CT NECK W CONTRAST; Future - CT SINUSES W WO CONTRAST; Future - Doxycycline Hyclate 100 MG Oral Capsule; Take 1 Capsule by mouth in the morning and 1 Capsule before bedtime. Do all this for 10 days. Dispense: 20 Capsule; Refill: 0 2. Acute sinusitis, recurrence not specified, unspecified location - cefTRIAXone (Rocephin) inj 1 g - OTOLARYNGOLOGY REFERRAL OP - CBC WITH WBC DIFFERENTIAL; Future - COMPREHENSIVE METABOLIC PANEL; Future - CT NECK W CONTRAST; Future - CT SINUSES W WO CONTRAST; Future - Doxycycline Hyclate 100 MG Oral Capsule; Take 1 Capsule by mouth in the morning and 1 Capsule before bedtime. Do all this for 10 days. Dispense: 20 Capsule; Refill: 0 3. Facial pain - cefTRIAXone (Rocephin) inj 1 g - OTOLARYNGOLOGY REFERRAL OP - CBC WITH WBC DIFFERENTIAL; Future - COMPREHENSIVE METABOLIC PANEL; Future - CT NECK W CONTRAST; Future - CT SINUSES W WO CONTRAST; Future - Doxycycline Hyclate 100 MG Oral Capsule; Take 1 Capsule by mouth in the morning and 1 Capsule before bedtime. Do all this for 10 days. Dispense: 20 Capsule; Refill: 0 4. Facial swelling - cefTRIAXone (Rocephin) inj 1 g - OTOLARYNGOLOGY REFERRAL OP - CBC WITH WBC DIFFERENTIAL; Future - COMPREHENSIVE METABOLIC PANEL; Future - CT NECK W CONTRAST; Future - CT SINUSES W WO CONTRAST; Future - Doxycycline Hyclate 100 MG Oral Capsule; Take 1 Capsule by mouth in the morning and 1 Capsule before bedtime. Do all this for 10 days. Dispense: 20 Capsule; Refill: 0 Suspect sinus abscess with spread to ear and face. Need to r/o deep space infection, mastoiditis, etc. Spoke with [facility]. Will do CTX today and start doxy Will get CT sinus and neck at today and labs. Urgent ENT follow-up Follow up [facility] Strong today for CT scan and blood work. Please call [phone] to schedule your study If you cannot get through on this line, you may call . Start doxycycline twice a day for 10 days Makes you sensitive to the sun. No Dairy, tums, rolaids, or multivitamin 2-3 hours before or after dose. Tylenol as needed for pain. Follow-up with ENT tomorrow. Go to ER if acutely worsens Total time today including reviewing chart before the visit, pertinent labs, imaging reports, face to face time, and documentation time was 45 minutes. The above was discussed and understanding was expressed. Rasheed Hampton PA-C documented in this encounter Nursing Notes * Tracey Maxwell LPN - 06/04/2023 11:25 AM EST Sheryl Salazar is a 73 year old female who presents to walk-in clinic today complaining of Chief Complaint Patient presents with Other Right sided facial pain and swelling with noted redness x 3 days increasing worsening noted Nausea Tried: otc pain med/benadryl Pt accompanied by: self documented in this encounter Plan of Treatment Upcoming Encounters Date Type Department Care Team (Late st Contact Info) Description 06/25/2023 10:30 AM EDT Office Visit Pharmacy, [facility] [address] [facility] [place] [address] Pharmacist1, [facility] [address] [facility] [place] [address] 08/30/2023 11:00 AM EDT Office Visit Family Practice [facility] Jailyn Dana [address] [facility] [place] [address] Clarita Tirado PA-C [address] [facility] [place] [address] Scheduled Orders Name Type Priority Associated Diagnoses Orde r Schedule CBC WITH WBC DIFFERENTIAL Lab Routine Acute diffuse otitis externa of right ear Acute sinusitis, recurrence not specified, unspecified location Facial pain Facial swelling Expected: 06/04/2023, Expires: 06/04/2024 COMPREHENSIVE METABOLIC PANEL Lab Routine Acute diffuse otitis externa of right ear Acute sinusitis, recurrence not specified, unspecified location Facial pain Facial swelling Expected: 06/04/2023, Expires: 06/04/2024 CT NECK W CONTRAST Medical Imaging STAT Acute diffuse otitis externa of right ear Acute sinusitis, recurrence not specified, unspecified location Facial pain Facial swelling Expected: 06/04/2023, Expires: 07/03/2023 CT SINUSES W WO CONTRAST Medical Imaging STAT Acute diffuse otitis externa of right ear Acute sinusitis, recurrence not specified, unspecified location Facial pain Facial swelling Expected: 06/04/2023, Expires: 07/03/2023 Scheduled Procedures Name Priority Associated Diagnoses Date/Ti me COLONOSCOPY FLEXIBLE PROXIMA L DIAGNOSTIC Recall Encounter for screening colonoscopy Scheduled Referrals Name Type Priority Associated Diagnoses Orde r Schedule OTOLARYNGOLOGY REFERRAL OP Referral Within 24 hrs (call dept; emergent) Acute diffuse otitis externa of right ear Acute sinusitis, recurrence not specified, unspecified location Facial pain Facial swelling Ordered: 06/04/2023 Health Maintenance Due Date Last Done Comments Cologuard 1996 Fecal Occult Blood Test 1996 Sigmoidoscopy 1996 GFR 08/23/2023 02/22/2023, 08/14, 02/22/2022, Additional history exists HbA1c 08/23/2023 02/22/2023, 08/14, 02/22/2022, Additional history exists CKD HGB USE SMARTSET 53354 08/25/202308/24, 08/05/2021, 05/11/2021, Additional history exists CKD PHOS USE SMARTSET 20337 08/25/2023 0504/2022, 08/05/2021, 2020 Mammogram 01/13/2024 01/12/2023, 08/2021, 06/21/2020, Additional history exists Diabetic Eye Exam 01/25/2024 01/24/2023, , 07/29/2021, Additional history exists Albumin/Creatinine Ratio 02/23/2024 023, 08/05/2021, 02/02/2021, Additional history exists B-12 02/23/2024 02/22/2023, 12/2021, 02/02/2021, Additional history exists Depression Screening 03/01/2024 03/01/2023, 12/23/2015 (Discussed) Diabetic Foot Exam 03/01/2024 03/01/2023, 1 05/01/2021, 03/08/2021, Additional history exists Colonoscopy 01/25/2026 01/26/2016, 01/14, 12/04/2005 Colorectal Cancer Screening 01/25/2026 DXA Scan 12/29/2026 12/30/2019, 09/14, 08/19/2007, Additional history exists Lipid Panel 08/25/2027 08/24/2022, 07/16, 02/02/2021, Additional history exists DTaP,Tdap,and Td Vaccines (3 - Td or Tdap) 08/29/2032 08/29/2022, 12/30/2009, 06/28/1999 Pneumococcal Vaccine: 65+ Years Completed 11/06/2017, 08/16/2016, 07/19/2005 Zoster Vaccines Completed 07/19/2020, 11/2020, 02/16/2014 Influenza Vaccine (FLU shot) Completed , 02/09/2022, 02/08/2021, Additional history exists COVID-19 Vaccine Completed 04/18/2023, , 08/09/2021, Additional history exists GARDASIL-HPV IMMUNIZATION SERIES Aged Out No longer eligible based on patient's age to complete this topic Hepatitis B Aged Out No longer eligi ble based on patient's age to complete this topic MENINGOCOCCAL (MENACTRA/MENVEO) Aged Out No longer eligible based on patient's age to complete this topic documented as of this encounter Medical Devices Not on filedocumented as of this encounter Visit Diagnoses Diagnosis Acute diffuse otitis externa of right ear- Primary Acute sinusitis, recurrence not specified, unspecified location Facial pain Headache Facial swelling Swelling, mass, or lump in head and neck documented in this encounter Administered Medications Inactive Administered Medications - up to 3 most recent administrations Medication Order MAR Action Action Date Dose Rate Site cefTRIAXone (Rocephin) inj 1 g 1 g, Intramuscular, ONCE, On Sun06/04/23 at 1230, For 1 dose Given 06/04/2023 11:55 AM EST 1 g Dorsogluteal Left documented in this encounter Care Teams Marketing Planning Manager Relationship Specialty Start Date End Date Roberto Carlos Carr III, MD [address] [facility] [place] [address] PCP - General Family Medicine 11/20/18 documented as of this encounter
[2023-06-05 08:13] LABS: Hematocrit (blood only) 38.8 % (37.0-47.0); Hemoglobin 12.9 g/dl (12.0-16.0); Mean Corpuscular Hemoglobin 27.6 pg (25.0-34.0); Mean Corpuscular Hgb Conc 33.2 g/dL (32.0-36.0); Mean Corpuscular Volume 82.9 fL (80.0-100.0); Mean Platelet Volume 9.4 fL (9.4-12.4); Platelet Count 198 K/uL (130-400); RDW Coefficient of Variation 15.1 % (11.5-14.5); RDW Standard Deviation 46.2 fL (36.4-46.3); Red Blood Count 4.68 M/uL (4.20-5.40)
[2023-06-05 08:38] LABS: Albumin Globulin Ratio 1.3 (0.9-2); Albumin Level 3.5 gm/dl (3.4-5.0); BUN Creatinine Ratio 14.8 (10-20); Bilirubin,Total 0.6 mg/dl (0.2-1.0); Calcium 8.1 mg/dl (8.6-10.3); Creatinine Clr Calc Pharmacy 64.2 ml/min; Est GFR (African American) 76.1 ml/min; Est GFR (Non-African American) 65.6 ml/min; Globulin 2.7 gm/dl (2.5-4.0); Potassium 3.5 mmol/L (3.5-5.1); Total Protein 6.2 gm/dl (6.0-8.3)
--- NOTE | 2023-06-05 11:08 | Electrocardiogram Report ---
Test Reason : Blood Pressure : / mmHG Vent. Rate : 081 BPM Atrial Rate : 081 BPM P-R Int : 174 ms QRS Dur : 094 ms QT Int : 398 ms P-R-T Axes : 052 006 032 degrees QTc Int : 462 ms Sinus rhythm with frequent Premature ventricular complexes Otherwise normal ECG When compared with ECG of 08-MAY-2022 11:12, Premature ventricular complexes are now Present QT has lengthened Confirmed by Devin Christine ([id number]) on 06/05/2023 11:08:05 AM Referred By: REFERRED SELF Confirmed By:Leighton Christine
[2023-06-05 12:39] LABS: Estimated Average Glucose 174 mg/dl; Hemoglobin A1C 7.7 % (4.5-5.6)
--- NOTE | 2023-06-05 13:02 | Pharmacy Report ---
Pharmacy Glycemic Short Note 2 - Date of Service June 05, 2023 - Glycemic Short BSG Results (Last 24 hours): 06/04/23 06/04/23 06/05/23 14:11 20:45 07:53 Glucose 169 H 120 H POC Glucose 146 H 06/05/23 06/05/23 08:07 11:47 Glucose POC Glucose 106 H 133 H OUTPATIENT ANTIDIABETIC REGIMEN: * Metformin 1000 mg PO BIDM * Jardiance 25 mg PO daily * Semaglutide 7 mg PO daily HbA1c: 7.7% (06/05/23) ASSESSMENT: * LR is a 73 year old female with sepsis secondary to facial cellulitis - receiving broad spectrum antibiotic regimen * Blood sugars reasonably well-controlled since time of admission * Received 10 units of basal insulin last evening w/ fasting BSG of 106 mg/dL this morning * Do not anticipate any major changes to glycemic regimen today PLAN FOR INPATIENT GLYCEMIC CONTROL: * Hold outpatient oral diabetes medications * Basal insulin * Lantus 8-10 units SQ HS (see EHR for details) * Bolus insulin * NovoLog per scale ACHS or Q6hrs while NPO * Goal Range: Low 110 mg/dL - High 140 mg/dL * Correction Factor: 25 mg/dL/unit * Nutritional / Prandial insulin per carb ratio of 1 unit per 9 grams CHO consumed
--- NOTE | 2023-06-05 18:24 | Hospitalist Progress Note ---
Date of Service June 05, 2023 Assessment & Plan (1) Sepsis: (2) Facial cellulitis: (3) Elevated lactic acid level: (4) Hyperlipidemia: (5) Hypertension: (6) Diabetes mellitus: Plan Ms. Salazar is a 73 year old woman with history of HTN, NIDDM2, and HLD that presented to the ED today after being recommended to come to the ED from [facility]. On Sunday she noticed she had a fever (101) and a headache with swelling that started at her right ear extending downward on her face. She received IM Rocephin at [facility] today and was advised to proceed to the ER. In the ED, was noted to have leukocytosis WBC 13.00, elevated lactate 2.1, procalcitonin negative, and otherwise electrolytes unremarkable. CT of face did not reveal any drainable fluid collections or other notable abnormality on imaging. Patient notes clincal improvement, with corresponding down trend in WBC and lactate. #Sepsis secondary to facial cellulitis: Leukocytosis 13.00, tachypnea, fevers 101, elevated lactate 2.1 meeting sepsis criteria Received IM Rocephin as outpatient Lactate 2.1--> 1.8 IV Linezolid in ED; will continue with Unasyn and adjust based on culture/MRSA results Blood cultures NGTD Received 2LNSB in ED; lactate has trended downward. gentle fluids added x2 bags Maxillary/facial CT negative for abscess and fracture Lyme's serology negative MRSA negative ID consulted for duration of treatment/ IV v PO regimen #HTN: Chronic Takes Lisinopril; continue HLD: Chronic Takes Simvastatin;continue NIDDM2: Chronic A1c 06/05 7.7% Takes Metformin and semalutide; hold for now and place on [facility] Disposition: PCP: Clarita Tirado PA-C Code Status: Full Code VTE Prophylaxis: Lovenox SQ Admission and Anticipated Discharge Date Admission Date: June 04, 2023 Subjective Patient evaluated at bedside Reports feeling much better, but still notes some facial tenderness and scalp tenderness. Denies any fevers, chills or other acute concerns at this time Physical Exam Constitutional: WD/WN, vitals as above Respiratory: normal respiratory effort, lungs clear to auscultation Cardiovascular: RRR, no murmur, no edema Gastrointestinal (Abdomen): normal bowel sounds, soft, nontender, no hepatosplenomegaly Skin: erythema with demarcated area extending from right border of nasal bridge to right ear, erythematous beefy swelling of right ear, warm to touch, tenderness across scalp, erythema extending/fading out across forehead reports less tenderness on palpation than day prior; some skin scaling, no purulence or pustules noted Results & Data Results & Data Vital Signs (Past 12 Hours) Vital Signs Temp Pulse Pulse Pulse Resp BP BP 06/05/23 16:37 90 06/05/23 16:21 36.8 C 54 L 18 121/68 06/05/23 13:07 36.5 C 67 20 113/58 L 06/05/23 10:57 36.5 C 76 24 107/65 06/05/23 07:47 36.5 C 56 L 22 111/65 06/05/23 07:30 77 Pulse Ox O2 Del Method 06/05/23 16:37 06/05/23 16:21 92 Room Air 06/05/23 13:07 95 Room Air 06/05/23 10:57 95 Room Air 06/05/23 07:47 92 Room Air 06/05/23 07:30 Laboratory Results Short CBC 06/05/23 Range/Units 07:53 WBC 10.20 (4.8-10.8) K/ul Hgb 12.9 (12.0-16.0) g/dl Hct 38.8 (37.0-47.0) % Plt Count 198 (130-400) K/uL BMP 06/05/23 07:53 Sodium 135 L Potassium 3.5 D Chloride 104 Carbon Dioxide 22 BUN 13 Creatinine 0.88 Glucose 120 H Calcium 8.1 L Liver Function 06/05/23 Range/Units 07:53 Total Bilirubin 0.6 (0.2-1.0) mg/dl AST 14 (13-39) U/L ALT 11 (7-52) U/L Alkaline Phosphatase 49 (34-104) U/L Albumin 3.5 (3.4-5.0) gm/dl Medications Administered Home Medications Medication Instructions Recorded Confirmed Last Taken fbxjoge-ihmiwhciknuio-cmpfnybj 250 2 tab PO Q6H PRN Headache 11/15/18 06/04/23 11/13/18 mg-250 mg-65 mg tablet (Excedrin Migraine) empagliflozin 25 mg tablet 25 mg PO QAM 11/15/18 06/04/23 05/24/21 06:00 (Jardiance) glucosamine sulfate 500 mg tablet 500 mg PO QAM 11/15/18 06/04/23 05/05/21 06:00 (Glucosamine) lisinopril 40 mg tablet 40 mg PO PM 11/15/18 06/04/23 05/25/21 22:30 metformin 1,000 mg tablet 1,000 mg PO BIDM 11/15/18 06/04/23 05/25/21 18:00 multivitamin 1 tab PO QAM 11/15/18 06/04/23 05/19/21 06:00 multivitamin,Ca,mineral-folic 400 mcg PO PM 11/15/18 06/04/23 05/19/21 06:00 acid-herbal no.157 400 mcg tablet (Estroven Maximum Strength) simvastatin 40 mg tablet 40 mg PO PM 11/15/18 06/04/23 05/25/21 22:30 semaglutide 7 mg tablet 7 mg PO QAM 05/16/21 06/04/23 Unknown acetaminophen 500 mg tablet 1,000 mg (2 x 500 mg) PO Q8 #60 05/26/21 06/04/23 Unknown (Tylenol Extra Strength) tabs aspirin 81 mg tablet,delayed 81 mg PO BID #60 tabs 05/26/21 06/04/23 Unknown release celecoxib 200 mg capsule (Celebrex) 200 mg PO BID #60 caps 05/26/21 06/04/23 Unknown ondansetron HCl 4 mg tablet 4 mg PO Q8H PRN nausea and 05/26/21 06/04/23 Unknown vomiting #20 tabs oxycodone 5 mg tablet 5 - 10 mg (1 - 2 x 5 mg) PO 05/26/21 06/04/23 Unknown .Q4h-6h PRN pain #30 tabs Active Medications Generic Name Dose Route Start Last Admin Trade Name Freq PRN Reason Stop Dose Admin Aspirin 81 mg 06/04/23 21:00 06/05/23 11:56 Aspirin 81 Mg Ectab PO 07/04/23 20:59 81 mg BID SHEKHAR Administration Enoxaparin Sodium 40 mg 06/04/23 18:30 06/05/23 11:56 Enoxaparin Inj 40 Mg/0.4 Ml Syr SQ 07/04/23 18:29 40 mg QAM SHEKHAR Administration Linezolid 600 mg in 300 mls @ 300 mls/hr 06/04/23 14:15 06/05/23 14:06 Zyvox IV 06/11/23 14:14 Infused Q12H SHEKHAR Infusion Ampicillin Sodium/Sulbactam 100 mls @ 200 mls/hr 06/04/23 21:00 06/05/23 16:11 Sodium 3,000 mg/ Sodium IV 06/11/23 20:59 Infused Chloride Q6H SHEKHAR Infusion Sodium Chloride 1,000 mls @ 80 mls/hr 06/04/23 18:15 06/05/23 06:58 Nss IV 06/05/23 19:14 80 mls/hr .[id number] SHEKHAR Administration Insulin Aspart 0 units 06/04/23 21:00 06/05/23 12:57 Insulin Aspart Per Unit Charge SC 07/04/23 20:59 5 units ACHS SHEKHAR Administration Lisinopril 40 mg 06/04/23 21:00 06/04/23 21:03 Lisinopril 40 Mg Tab PO 07/04/23 20:59 40 mg PM SHEKHAR Administration Simvastatin 40 mg 06/04/23 21:00 06/04/23 21:03 Simvastatin 40 Mg Tab PO 07/04/23 20:59 40 mg PM SHEKHAR Administration
[2023-06-05] MEDS: LANTUS PER UNIT CHARGE SQ SCH (21:44)
[2023-06-06 07:02] LABS: Hematocrit (blood only) 36.7 % (37.0-47.0); Hemoglobin 12.2 g/dl (12.0-16.0); Mean Corpuscular Hemoglobin 27.4 pg (25.0-34.0); Mean Corpuscular Hgb Conc 33.2 g/dL (32.0-36.0); Mean Corpuscular Volume 82.5 fL (80.0-100.0); Mean Platelet Volume 9.9 fL (9.4-12.4); Platelet Count 204 K/uL (130-400); RDW Coefficient of Variation 15.1 % (11.5-14.5); RDW Standard Deviation 45.8 fL (36.4-46.3); Red Blood Count 4.45 M/uL (4.20-5.40); White Blood Count 8.64 K/ul (4.8-10.8)
[2023-06-06 07:20] LABS: BUN Creatinine Ratio 15.3 (10-20); Calcium 8.2 mg/dl (8.6-10.3); Creatinine Clr Calc Pharmacy 66.5 ml/min; Est GFR (African American) 79.3 ml/min; Est GFR (Non-African American) 68.5 ml/min
--- NOTE | 2023-06-06 08:47 | Pharmacy Report ---
Pharmacy Glycemic Short Note 2 - Date of Service June 06, 2023 - Glycemic Short BSG Results (Last 24 hours): 06/05/23 06/05/23 06/05/23 11:47 17:26 20:02 Glucose POC Glucose 133 H 124 H 153 H 06/06/23 06/06/23 06:42 08:34 Glucose 110 H POC Glucose 119 H OUTPATIENT ANTIDIABETIC REGIMEN: * Metformin 1000 mg PO BIDM * Jardiance 25 mg PO daily * Semaglutide 7 mg PO daily HbA1c: 7.7% (06/05/23) ASSESSMENT: 06/06/23: * BSGs well-controlled yesterday, ranging 106-153 mg/dL * Received 22 units of insulin yesterday (10 units of basal and 12 units of prandial/correctional bolus) * Do not anticipate any changes to glycemic regimen today * If BSG control continues can likely sign off consult tomorrow 06/05/23: * LR is a 73 year old female with sepsis secondary to facial cellulitis - receiving broad spectrum antibiotic regimen * Blood sugars reasonably well-controlled since time of admission * Received 10 units of basal insulin last evening w/ fasting BSG of 106 mg/dL this morning * Do not anticipate any major changes to glycemic regimen today PLAN FOR INPATIENT GLYCEMIC CONTROL: * Hold outpatient oral diabetes medications * Basal insulin * Lantus 10 units SQ HS * Bolus insulin * NovoLog per scale ACHS or Q6hrs while NPO * Goal Range: Low 110 mg/dL - High 140 mg/dL * Correction Factor: 25 mg/dL/unit * Nutritional / Prandial insulin per carb ratio of 1 unit per 9 grams CHO consumed
--- NOTE | 2023-06-06 13:29 | Hospitalist Progress Note ---
Date of Service June 06, 2023 Assessment & Plan (1) Sepsis: (2) Facial cellulitis: (3) Elevated lactic acid level: (4) Hyperlipidemia: (5) Hypertension: (6) Diabetes mellitus: Plan Ms. Salazar is a 73 year old woman with history of HTN, NIDDM2, and HLD who presented from urgent care with concern for facila cellulits. Sepsis Facial Cellulitis On admission, ot with Leukocytosis 13.00, tachypnea, fevers 101, elevated lactate 2.1 meeting sepsis criteria Received IM Rocephin as outpatient Lactate 2.1--> 1.8, after fluid resuscitation IV Linezolid in ED; transitioned to Unasyn Blood cultures NGTD Maxillary/facial CT negative for abscess and fracture Lyme's serology negative MRSA negative ID consulted for duration of treatment/ IV v PO regimen -seen on 06/06, recommending dc home with po augmentin in setting of negative MRSA nares -pt requesting dc on 06/07 HTN: Takes Lisinopril; continue HLD: Takes Simvastatin;continue DMII Chronic A1c 06/05 7.7% Takes Metformin and semalutide; hold for now and place on [facility] ACHS Disposition: PT/OT ordered Code Status: Full Code VTE Prophylaxis: Lovenox SQ Admission and Anticipated Discharge Date Admission Date: June 04, 2023 Subjective Pt seen multiple times during the day. Initially stated that her rash and pain seemed to be improving. No further fever episodes. Later discussed ID recs with pt. She would like to repeat the MRSA nares and consider discharge home tomorrow. Review of Systems Review of Systems: All systems reviewed & are unremarkable except as noted in Subjective Physical Exam Physical Exam: General: Alert, oriented. No acute distress Skin: erythema of right side of face, ear and scalp noted Psych: Appropriate mood and affect Neuro: No gross deficits HEENT: NC/AT, erythema of right side of face, ear and scalp noted Chest: Nontender to palpation. CV: RRR Resp: Breath sounds clear bilaterally, no increased effort of breathing. Abdomen: Soft, nontender, nondistended. Extremities: No edema in lower extremities bilaterally. Results & Data Results & Data Vital Signs (Past 12 Hours) Vital Signs Temp Pulse Pulse Pulse Resp BP Pulse Ox 06/06/23 12:45 36.6 C 74 14 135/74 98 06/06/23 07:46 36.4 C L 74 14 124/80 94 06/06/23 07:19 75 06/06/23 02:36 36.6 C 61 16 123/71 94 O2 Del Method 06/06/23 12:45 Room Air 06/06/23 07:46 Room Air 06/06/23 07:19 06/06/23 02:36 Room Air
--- NOTE | 2023-06-06 14:52 | Infectious Disease Consult ---
<Statement entered by Brian Roberto MD - 06/06/23 15:12> Attending addendum This 73 y/o female w/ hx of DM2 and HTN, admitted to [facility] on 06/04/23 for fever and VAZ w/ swelling of R ear extending downward on her face. Found to have mile leukocytosis. CT maxillofacial showed no abscess or fracture but erythema and swelling was evident on R ear and mandible. The patient suspects spider bite but unsure. The patient is currently on unasyn and linezolid. Blood cx remains negative. As the patient reports significant improvement on current abx, the pathogens are likely the usual skin amita (i.e, Staphylococcus and Streptococcus spp) and/or OP amita from cats (the patient let her cats lick her face and ears) including Pasturella and/or anaerobes. I would get MRSA nare screen. If negative, use augmentin alone for the rest of total 14 day abx therapy. If MRSA screen positive, use both augmentin and doxycycline. I have advised close f/u w/ PCP upon discharge. I saw and evaluated the patient today. I have reviewed the trainee note and agree. I spent a total of 50 minutes coordinating, documenting, and providing care for this patient excluding time spent in performance of separately billed services. Date of Service June 06, 2023 Telehealth Information I performed this visit using a real-time telehealth connection between my location and the patients location ([facility]). After connecting through interactive tele-video, patient was identified by name and date of and/or wristband check.Patient (or authorized healthcare customer contact representative) was informed that this was a telemedicine visit and it was being conducted confidentially over secure lines. My office door was closed and no one else was present in the room with me.Patient (or authorized healthcare customer contact representative) provided consent to proceed with the visit, expressed an understanding of privacy and security of the telemedicine visit, and gave permission to have a hospital customer contact representative in the room in order to assist with the visit and to conduct portions of the visit, as needed. I informed the patient (or authorized healthcare customer contact representative) that I reviewed their record and presented the opportunity for them to ask any questions regarding the visit today. The patient agreed to participate. Assessment & Plan (1) Facial cellulitis: (2) Leukocytosis: (3) Diabetes mellitus: Plan Recommending to obtain nasal MRSA PCR screen if MRSA is negative we recommend switching IV unasyn to PO augmentin 875mg BID for total of 14 days if MRSA is positive, we recommend to add Po doxycycline 100mg BID along with Augmentin and follow up with PCP. Infectious disease will stop actively following, please call us with any questions History of Present Illness History of Present Illness 73 y/o F with PMH of H/o Obesity, Osteoarthritis, Hyperlipidemia, Hypertension, Diabetes mellitus was admitted with right sided facial swelling, fever and head ache since two days, worsening with redness extending up to the right ear and the scalp. She was seen in urgent care [facility] and given IM rocephin. patient has been cleaning up her kitchen and house and noted spiders, mold after peeling wall paper. She also has cat at home, admits staying close with ct but denies obvious scratches or trauma. She has rat/mice infestation at home. Denies trauma to the face. In the ED, was noted to have leukocytosis WBC 13.00, elevated lactate 2.1, procalcitonin negative, and otherwise electrolytes unremarkable. Upon arrival to the ED, pt meets sepsis criteria with leukocytosis (13.00), elevate lactate (2.1), and fevers (101). Maxillary facial CT negative for abscess or fracture. Allergies Allergy/AdvReac Type Severity Reaction Status Date / Time No Known Allergies Allergy Verified 05/26/21 07:49 Home Medications Medication Instructions Recorded Confirmed Type kxfaepl-esxludruzpgnz-uoucicno 250 2 tab PO Q6H PRN Headache 11/15/18 06/04/23 History mg-250 mg-65 mg tablet (Excedrin Migraine) empagliflozin 25 mg tablet 25 mg PO QAM 11/15/18 06/04/23 History (Jardiance) glucosamine sulfate 500 mg tablet 500 mg PO QAM 11/15/18 06/04/23 History (Glucosamine) lisinopril 40 mg tablet 40 mg PO PM 11/15/18 06/04/23 History metformin 1,000 mg tablet 1,000 mg PO BIDM 11/15/18 06/04/23 History multivitamin 1 tab PO QAM 11/15/18 06/04/23 History multivitamin,Ca,mineral-folic 400 mcg PO PM 11/15/18 06/04/23 History acid-herbal no.157 400 mcg tablet (Estroven Maximum Strength) simvastatin 40 mg tablet 40 mg PO PM 11/15/18 06/04/23 History semaglutide 7 mg tablet 7 mg PO QAM 05/16/21 06/04/23 History acetaminophen 500 mg tablet 1,000 mg (2 x 500 mg) PO Q8 #60 05/26/21 06/04/23 Rx (Tylenol Extra Strength) tabs aspirin 81 mg tablet,delayed 81 mg PO BID #60 tabs 05/26/21 06/04/23 Rx release celecoxib 200 mg capsule (Celebrex) 200 mg PO BID #60 caps 05/26/21 06/04/23 Rx ondansetron HCl 4 mg tablet 4 mg PO Q8H PRN nausea and 05/26/21 06/04/23 Rx vomiting #20 tabs oxycodone 5 mg tablet 5 - 10 mg (1 - 2 x 5 mg) PO 05/26/21 06/04/23 Rx .Q4h-6h PRN pain #30 tabs Patient History Medical History Obesity Osteoarthritis Hyperlipidemia Hypertension Diabetes mellitus NIDDM Surgical History History of colonoscopy History of bilateral tubal ligation History of section x1 History of tonsillectomy Family History Other Family history non-contributory No family history of adverse response to anesthesia Social History Smoking Status: Never smoker Second Hand Exposure: No; Do You Dip or Chew Tobacco: No; Hx Alcohol Use: No Hx Substance Use: No Preferred Language: Grenadian Communication Ability: Effective Assayer Helper Required: No Beliefs That Will Affect Care: None Current Living Situation: Spouse Feels Safe at Home: Yes Assistive Devices: Glasses Review of Systems All other ROS was negative Physical Exam physical examination limited Examination of the HEENT: diffuse erythematous area noted on the right side of the face, cheek with nasolabial fold involvement, scaly and dry skin noted over the ear Results & Data Vital Signs (Past 12 Hours) Vital Signs Temp Pulse Pulse Resp BP Pulse Ox O2 Del Method 06/06/23 12:45 36.6 C 74 14 135/74 98 Room Air 06/06/23 07:46 36.4 C L 74 14 124/80 94 Room Air 06/06/23 07:19 75 Laboratory Results 06/04/23 14:11 Aerobic Blood Culture - Preliminary Blood No growth in Aerobic bottle after 24 hours. Anaerobic Blood Culture - Preliminary No growth in Anaerobic bottle after 24 hours. 06/04/23 14:35 Aerobic Blood Culture - Preliminary Blood No growth in Aerobic bottle after 24 hours. Anaerobic Blood Culture - Preliminary No growth in Anaerobic bottle after 24 hours. 06/06/23 06/06/23 06/06/23 11:52 08:34 06:42 WBC 8.64 RBC 4.45 Hgb 12.2 Hct 36.7 L MCV 82.5 MCH 27.4 MCHC 33.2 RDW Std Deviation 45.8 RDW Coeff of Farhad 15.1 H Plt Count 204 MPV 9.9 Sodium 138 Potassium 4.0 Chloride 108 H Carbon Dioxide 24 Anion Gap 6 BUN 13 Creatinine 0.85 Est Cr Clr Drug Dosing 66.5 Est GFR ( Amer) 79.3 Est GFR (Non-Af Amer) 68.5 BUN/Creatinine Ratio 15.3 Glucose 110 H POC Glucose 116 H 119 H Calcium 8.2 L 06/05/23 06/05/23 20:02 17:26 WBC RBC Hgb Hct MCV MCH MCHC RDW Std Deviation RDW Coeff of Farhad Plt Count MPV Sodium Potassium Chloride Carbon Dioxide Anion Gap BUN Creatinine Est Cr Clr Drug Dosing Est GFR ( Amer) Est GFR (Non-Af Amer) BUN/Creatinine Ratio Glucose POC Glucose 153 H 124 H Calcium Diagnostic Findings CT of face did not reveal any drainable fluid collections or other notable abnormality on imaging. Xray Knee: Expected postoperative appearance status post placement of total knee arthroplasty. CXR: No acute abnormalities and in particular no radiographic evidence of pne umonia. Medications Administered Home Medications Medication Instructions Recorded Confirmed Last Taken hpvfxld-repzaqqiilktr-esrnosjb 250 2 tab PO Q6H PRN Headache 11/15/18 06/04/23 11/13/18 mg-250 mg-65 mg tablet (Excedrin Migraine) empagliflozin 25 mg tablet 25 mg PO QAM 11/15/18 06/04/23 05/24/21 06:00 (Jardiance) glucosamine sulfate 500 mg tablet 500 mg PO QAM 11/15/18 06/04/23 05/05/21 06:00 (Glucosamine) lisinopril 40 mg tablet 40 mg PO PM 11/15/18 06/04/23 05/25/21 22:30 metformin 1,000 mg tablet 1,000 mg PO BIDM 11/15/18 06/04/23 05/25/21 18:00 multivitamin 1 tab PO QAM 11/15/18 06/04/23 05/19/21 06:00 multivitamin,Ca,mineral-folic 400 mcg PO PM 11/15/18 06/04/23 05/19/21 06:00 acid-herbal no.157 400 mcg tablet (Estroven Maximum Strength) simvastatin 40 mg tablet 40 mg PO PM 11/15/18 06/04/23 05/25/21 22:30 semaglutide 7 mg tablet 7 mg PO QAM 05/16/21 06/04/23 Unknown acetaminophen 500 mg tablet 1,000 mg (2 x 500 mg) PO Q8 #60 05/26/21 06/04/23 Unknown (Tylenol Extra Strength) tabs aspirin 81 mg tablet,delayed 81 mg PO BID #60 tabs 05/26/21 06/04/23 Unknown release celecoxib 200 mg capsule (Celebrex) 200 mg PO BID #60 caps 05/26/21 06/04/23 Unknown ondansetron HCl 4 mg tablet 4 mg PO Q8H PRN nausea and 05/26/21 06/04/23 Unknown vomiting #20 tabs oxycodone 5 mg tablet 5 - 10 mg (1 - 2 x 5 mg) PO 05/26/21 06/04/23 Unknown .Q4h-6h PRN pain #30 tabs Active Medications Generic Name Dose Route Start Last Admin Trade Name Freq PRN Reason Stop Dose Admin Aspirin 81 mg 06/04/23 21:00 06/06/23 09:12 Aspirin 81 Mg Ectab PO 07/04/23 20:59 81 mg BID SHEKHAR Administration Enoxaparin Sodium 40 mg 06/04/23 18:30 06/06/23 09:14 Enoxaparin Inj 40 Mg/0.4 Ml Syr SQ 07/04/23 18:29 40 mg QAM SHEKHAR Administration Linezolid 600 mg in 300 mls @ 300 mls/hr 06/04/23 14:15 06/06/23 14:18 Zyvox IV 06/11/23 14:14 300 mls/hr Q12H SHEKHAR Administration Ampicillin Sodium/Sulbactam 100 mls @ 200 mls/hr 06/04/23 21:00 06/06/23 14:18 Sodium 3,000 mg/ Sodium IV 06/11/23 20:59 200 mls/hr Chloride Q6H SHEKHAR Administration Insulin Aspart 0 units 06/04/23 21:00 06/06/23 13:18 Insulin Aspart Per Unit Charge SC 07/04/23 20:59 4 units ACHS SHEKHAR Administration Lisinopril 40 mg 06/04/23 21:00 06/05/23 21:45 Lisinopril 40 Mg Tab PO 07/04/23 20:59 40 mg PM SHEKHAR Administration Simvastatin 40 mg 06/04/23 21:00 06/05/23 21:45 Simvastatin 40 Mg Tab PO 07/04/23 20:59 40 mg PM SHEKHAR Administration
[2023-06-06] MEDS: LANTUS PER UNIT CHARGE SQ SCH (21:11)
[2023-06-07 07:33] LABS: Basophils # (auto) 0.04 K/uL (0.00-0.20); Basophils % (auto) 0.6 %; Eosinophils # (auto) 0.16 K/uL (0.00-0.50); Eosinophils % (auto) 2.3 %; Hematocrit (blood only) 39.8 % (37.0-47.0); Immature Granulocytes # (auto) 0.03 K/uL (0.01-0.20); Immature Granulocytes % (auto) 0.4 %; Lymphocytes # (auto) 2.32 K/uL (1.20-3.40); Mean Corpuscular Hemoglobin 27.2 pg (25.0-34.0); Mean Corpuscular Hgb Conc 32.7 g/dL (32.0-36.0); Mean Corpuscular Volume 83.3 fL (80.0-100.0); Mean Platelet Volume 9.8 fL (9.4-12.4); Monocytes # (auto) 0.55 K/uL (0.11-0.59); Monocytes % (auto) 7.8 %; Neutrophils # (auto) 3.94 K/uL (1.40-6.50); Neutrophils % (auto) 55.9 %; Platelet Count 247 K/uL (130-400); RDW Coefficient of Variation 14.7 % (11.5-14.5); RDW Standard Deviation 44.9 fL (36.4-46.3); Red Blood Count 4.78 M/uL (4.20-5.40); White Blood Count 7.04 K/ul (4.8-10.8)
[2023-06-07 07:57] LABS: Calcium 8.7 mg/dl (8.6-10.3); Creatinine Clr Calc Pharmacy 70.6 ml/min; Est GFR (African American) 85.4 ml/min; Est GFR (Non-African American) 73.7 ml/min
--- NOTE | 2023-06-07 11:37 | Discharge Summary ---
Discharge Summary Date of Service June 07, 2023 Notes For Next Care Provider Pt with facial, right ear and scalp cellulitis. Please ensure resolution of symptoms. Medication Changes From Visit Augmentin 875mg BID x 12 more days Admission HPI Per Admitting Provider Ms. Salazar is a 73 year old female that presented to the ED today after being recommended to come to the ED from [facility]. On Sunday she noticed she had a fever (101) and a headache with swelling that started at her right ear extending downward on her face. She received IM Rocephin at [facility] and was advised to proceed to the ER. In the ED, was noted to have leukocytosis WBC 13.00, elevated lactate 2.1, procalcitonin negative, and otherwise electrolytes unremarkable. Additional PMH includes HTN, NIDDM2, and HLD. Upon arrival to the ED, pt meets sepsis criteria with leukocytosis (13.00), elevate lactate (2.1), and fevers (101). Denies tobacco, alcohol, or recreational drug use. Reports that she has been doing a lot of cleaning in the kitchen on her hands and knees. They do report having a cat and mice in their house. Exposed mold noted upon removing wallpaper earlier this week. Maxillary facial CT negative for abscess or fracture. Lyme's screening negative. On examination, (+) erythema and swelling of entire R ear extending downward toward mandible. No oral lesions. No lymphadenopathy. Suspect possible spider bite. Will admit for sepsis secondary to facial cellulitis. Continue IV abx and adjust based on culture results, trend lactate, maxillary and facial CT obtained, continue broad spectrum abx, obtain MRSA screen, provide pain control, check CRP and place on SSI. Please see A/P for further details. Admission Exam Per Admitting Provider Neuro: AAOx4, PERRLA, no aphagia, memory changes, CNII-XII grossly intact (+) fever HEENT: head normocephalic, moist mucus membranes CV: S1/S2, (-) M/G/R, (-) edema, cap refill < 3 seconds Resp: Lungs CTA in all velázquez. On RA GI: Abdomen S/NT/ND, Ax4 bowel sounds, (-) CVA tenderness Musculoskeletal: 5/5 B/L UE strength, 5/5 B/L LE strength. No gait disturbance Skin: (-) rashes , (-) erythema. (+) erythema and swelling of entire R ear extending downward toward mandible. No oral lesions. No lymphadenopathy. Psych: euthymic mood Principal Dx & Hospital Course #1 = Principal Diagnosis (1) Sepsis: (2) Facial cellulitis: (3) Elevated lactic acid level: (4) Hyperlipidemia: (5) Hypertension: (6) Diabetes mellitus: Plan Ms. Salazar is a 73 year old woman with history of HTN, NIDDM2, and HLD who presented from urgent care with concern for facial cellulitis. Sepsis Facial Cellulitis On admission, pt with leukocytosis of 13K, tachypnea, fever of 101, elevated lactate 2.1 meeting sepsis criteria Received IM Rocephin as an outpatient Lactate was elevated at 2.1, decreased to 1.8 after fluid resuscitation Treated with IV Linezolid in the ED and was transitioned to Unasyn dosed q6h. Completed ~ 2 days of dosing of Unasyn. Blood cultures NGTD Maxillary/facial CT negative for abscess and fracture Lyme's serology negative MRSA negative x2 ID consulted for duration of treatment/ IV v PO regimen on discharge -pt was seen by ID on 06/06, recommending dc home with po Augmentin in setting of negative MRSA nares for a total of 14 days of antibiotic treatment. -Pt discharged with an additional 12 days of po Augmentin HTN: Takes Lisinopril; continue HLD: Takes Simvastatin;continue DMII hgbA1c on 06/05/23 of 7.7% Takes Metformin and Semaglutide, held while hospitalized ISS while hospitalized Can resume home meds on discharge Discharge Exam General: Alert, oriented. No acute distress Skin: erythema of right side of face, ear and scalp noted Psych: Appropriate mood and affect Neuro: No gross deficits HEENT: NC/AT, erythema of right side of face, ear and scalp noted Chest: Nontender to palpation. CV: RRR Resp: Breath sounds clear bilaterally, no increased effort of breathing. Abdomen: Soft, nontender, nondistended. Extremities: No edema in lower extremities bilaterally. Updated Medication List Medication Instructions Recorded Confirmed Type aaedymw-xtasynocyjtpy-nnwkwytt 250 2 tab PO Q6H PRN Headache 11/15/18 06/04/23 History mg-250 mg-65 mg tablet (Excedrin Migraine) empagliflozin 25 mg tablet 25 mg PO QAM 11/15/18 06/04/23 History (Jardiance) glucosamine sulfate 500 mg tablet 500 mg PO QAM 11/15/18 06/04/23 History (Glucosamine) lisinopril 40 mg tablet 40 mg PO PM 11/15/18 06/04/23 History metformin 1,000 mg tablet 1,000 mg PO BIDM 11/15/18 06/04/23 History multivitamin 1 tab PO QAM 11/15/18 06/04/23 History multivitamin,Ca,mineral-folic 400 mcg PO PM 11/15/18 06/04/23 History acid-herbal no.157 400 mcg tablet (Estroven Maximum Strength) simvastatin 40 mg tablet 40 mg PO PM 11/15/18 06/04/23 History semaglutide 7 mg tablet 7 mg PO QAM 05/16/21 06/04/23 History acetaminophen 500 mg tablet 1,000 mg (2 x 500 mg) PO Q8 #60 05/26/21 06/04/23 Rx (Tylenol Extra Strength) tabs aspirin 81 mg tablet,delayed 81 mg PO BID #60 tabs 05/26/21 06/04/23 Rx release celecoxib 200 mg capsule (Celebrex) 200 mg PO BID #60 caps 05/26/21 06/04/23 Rx ondansetron HCl 4 mg tablet 4 mg PO Q8H PRN nausea and 05/26/21 06/04/23 Rx vomiting #20 tabs oxycodone 5 mg tablet 5 - 10 mg (1 - 2 x 5 mg) PO 05/26/21 06/04/23 Rx .Q4h-6h PRN pain #30 tabs amoxicillin 875 mg-potassium 1 tab PO BID #24 tabs 06/07/23 Rx clavulanate 125 mg tablet Hospital Stay Data Consultations 06/04/23 15:57 ED Decision to Admit Stat 06/05/23 11:26 Consult Infectious Diseases Routine Diagnostic Imagining Performed 06/04/23 16:28 CT facial bones w con Routine Chest X-Ray 06/04/23 15:16 XR chest 1V portable CLINICAL HISTORY: sepsis TECHNIQUE: Single frontal radiograph of the chest was obtained. Comparison: Comparison is made to chest radiograph 02/24/2021 FINDINGS: No lines and tubes are seen. The cardiomediastinal silhouette is normal. The lungs are clear. No evidence of pleural effusion or pneumothorax. IMPRESSION: No acute abnormalities and in particular no radiographic evidence of pneumonia. ACT 112: Negative or not required by law. Electronically signed by: Kraig Carlisle M.D. 06/04/2023 3:[address] 06/04/23 16:28 CT facial bones w con CLINICAL HISTORY: facial cellulitis TECHNIQUE: Multidetector row helical CT of the maxillofacial bones was performed with administration of intravenous contrast, and processed with bone and soft tissue algorithms. Coronal and sagittal reformations were obtained. Automated dose lowering techniques and/or adjustment according to patient size were utilized for this exam. Comparison: None available at the time of this dictation. FINDINGS: Nasal bones are normal. The mandible is intact. The temporomandibular joints are anatomically aligned. Pterygoid plates are intact. Zygomatic arches are intact. The globes are normal and symmetric, without proptosis, obvious disruption or lens dislocation. There is no orbital radiopaque foreign body. The orbital hearn are intact. The retrobulbar fat is without evidence of disruption. Extraocular muscles are normal and symmetric. Optic nerve sheath complexes are normal in course and caliber. Imaged portions of the paranasal sinuses and mastoid air cells are clear. IMPRESSION: No drainable fluid collection, acute fracture, or other acute abnormality. ACT 112: Negative or not required by law. Electronically signed by: Kraig Carlisle M.D. 06/04/2023 4:56 PM Pending Results Patient Have Any Pending Studies at Discharge: No Discharge Instructions Given to Patient (Per Discharging Provider) Ms. Salazar, You were admitted with a very bad infection of your face and scalp. We treated you with IV antibiotics and you were seen by an Infectious Disease specialist. They recommended discharge home with the oral antibiotic Augmentin for an additional 12 days (14 days total of antibiotic treatment) since your MRSA screen was negative. Please keep close follow up with your primary care provider after discharge to ensure this resolves and for further monitoring. Please do not hesitate to come back to the emergency room if your symptoms worsen or return. It was a pleasure taking care of you while you were here. Total Time Total Time Spent Total Time Spent (In Minutes): > 30 minutes
== END 2023-06-07 12:45 | disposition home or self-care (01) | DRG 872 ==
LOC: ED 12:38 → EDINP 15:59 → SUATTDRO 15:59 → 2N 17:24